=== PATIENT | female | born 1950 | race Two or more races ===

== ENCOUNTER 2018-06-15 10:18 | Emergency (ER) | payer OTHER ==
[2018-06-15 10:29] VITALS: BP 146/85; PULSE 96; TEMP 98.6; BMI 21.9
--- NOTE | 2018-06-15 10:59 | PDOC ---
History of Present Illness - General Chief Complaint: Injury Stated Complaint: RIGHT FINGER INJURY Time Seen by Provider: 06/15/18 10:44 History Source: Patient Exam Limitations: No Limitations - History of Present Illness Initial Comments: 06/15/18 10:57 pt fell and injured her right thumb yesterday . Occurred: reports: yesterday Severity: reports: mild Past History - Past Medical History Allergies/Adverse Reactions: Allergies Allergy/AdvReac Type Severity Reaction Status Date / Time No Known Drug Allergies Allergy Verified 06/15/18 10:27 Home Medications: Ambulatory Orders Amlodipine Besylate [Norvasc -] 10 mg PO DAILY 01/27/15 Losartan Potassium 100 mg PO DAILY 01/27/15 FA/Mv,Ca,Iron,Min/Lycopene/Lut [Centrum Tablet] 1 each PO DAILY 10/16/15 Lipase/Protease/Amylase [Creon Dr 36,000 Units Capsule] 1 each PO TID 10/16/15 Albuterol Sulfate Inhaler - [Ventolin Hfa Inhaler -] 1 - 2 inh PO QID 02/21/16 Linaclotide [Linzess] 145 mcg PO DAILY 02/21/16 Pantoprazole Sodium [Protonix -] 20 mg PO DAILY 02/21/16 Anemia: No Asthma: No Cancer: No Cardiac Disorders: No CVA: No COPD: No CHF: No Dementia: No Diabetes: No GI Disorders: Yes (GERD, CONSTIPATION) Disorders: No HTN: Yes Hypercholesterolemia: No Liver Disease: No Seizures: No Thyroid Disease: No - Surgical History Abdominal Surgery: No Appendectomy: No Cardiac Surgery: No Cholecystectomy: No Lung Surgery: No Neurologic Surgery: No Orthopedic Surgery: No - Immunization History Immunization Up to Date: Yes - Suicide/Smoking/Psychosocial Hx Smoking History: Former smoker Have you smoked in the past 12 months: No If you are a former smoker, when did you quit?: 20 years ago Information on smoking cessation initiated: No Hx Alcohol Use: No Drug/Substance Use Hx: No Substance Use Type: None Hx Substance Use Treatment: No Trauma Specific PMHX - Complaint Specific PMHX Back Injury: No Neck Injury: No Review of Systems - Review of Systems Able to Perform ROS?: Yes Is the patient limited Thai proficient: No Musculoskeletal: Yes: Symptoms Reported *Physical Exam - Vital Signs Last Vital Signs Temp Pulse Resp BP Pulse Ox 98.6 F 96 H 18 146/85 100 06/15/18 10:27 06/15/18 10:27 06/15/18 10:27 06/15/18 10:27 06/15/18 10:27 - Physical Exam General Appearance: Yes: Nourished, Appropriately Dressed HEENT: positive: EOMI, CLEMENT Musculoskeletal: positive: Normal Inspection Extremity: positive: Normal Capillary Refill, Normal Inspection, Normal Range of Motion, Tender (base of the right thumb ). negative: Swelling, Calf Tenderness, Erythema, Inflammation Integumentary: positive: Normal Color, Dry, Warm Procedures - Splinting Splint Location: Left: Finger (orthoglass) Splint Type: Yes: Thumb Spica ED Treatment Course - RADIOLOGY Radiology Studies Ordered: Category Date Time Status FINGER(S) RIGHT [RAD] Stat Radiology 06/15/18 10:44 Ordered Medical Decision Making - Medical Decision Making 06/15/18 10:58 cc: trip and fall injured the right thumb, no gross deformity nv intact will get xray to r/o fracture *DC/Admit/Observation/Transfer Diagnosis at time of Disposition: Thumb sprain Qualifiers: Encounter type: initial encounter Sprain of finger site: other site Laterality : right Qualified Code(s): S63.681A - Other sprain of right thumb, initial encounter - Discharge Dispostion Disposition: HOME Condition at time of disposition: Good - Referrals Referrals: Esther Reinoso MD [Primary Care Provider] - Jase Alfaro MD [Staff Physician] - - Patient Instructions Additional Instructions: follow with the hand orthopedist if the pain worsens or continues beyond 3-5 days take ibuprofen 600mg every 6-8hrs for pain (over the counter) apply ice every 2hrs for 20 minutes to the area of pain - Post Discharge Activity
[2018-06-15] MEDS ORDERED: IBUPROFEN 600 MG TABLET (FP) PO ONE (11:11)
== END 2018-06-15 11:18 | disposition home or self-care (01) ==
LOC: JERFT 10:18
PROC: 2W3GX1Z Immobilization of Right Thumb using Splint (ICD-10-PCS; principal; 2018-06-15)
DX: S63.681A Other sprain of right thumb, initial encounter (principal); I10 Essential (primary) hypertension; K21.9 Gastro-esophageal reflux disease without esophagitis; Z87.891 Personal history of nicotine dependence; W01.0XXA Fall on same level from slipping, tripping and stumbling without subsequent striking against object, initial encounter; Y93.9 Activity, unspecified; Y92.9 Unspecified place or not applicable
CPT/HCPCS: 73140-TC-RT-FY; 99281-25

== ENCOUNTER 2018-09-07 10:04 | Emergency (ER) | payer OTHER ==
[2018-09-07 10:46] VITALS: BP 148/85; PULSE 107; TEMP 98.3; BMI 21.9
--- NOTE | 2018-09-07 12:54 | PDOC ---
History of Present Illness - General Chief Complaint: Pain, Acute Stated Complaint: HAND PAIN Time Seen by Provider: 09/07/18 11:38 Past History - Past Medical History Allergies/Adverse Reactions: Allergies Allergy/AdvReac Type Severity Reaction Status Date / Time No Known Drug Allergies Allergy Verified 09/07/18 11:35 Home Medications: Ambulatory Orders Amlodipine Besylate [Norvasc -] 10 mg PO DAILY 01/27/15 Losartan Potassium 100 mg PO DAILY 01/27/15 FA/Mv,Ca,Iron,Min/Lycopene/Lut [Centrum Tablet] 1 each PO DAILY 10/16/15 Lipase/Protease/Amylase [Creon Dr 36,000 Units Capsule] 1 each PO TID 10/16/15 Albuterol Sulfate Inhaler - [Ventolin Hfa Inhaler -] 1 - 2 inh PO QID 02/21/16 Linaclotide [Linzess] 145 mcg PO DAILY 02/21/16 Pantoprazole Sodium [Protonix -] 20 mg PO DAILY 02/21/16 Acetaminophen [Tylenol] 650 mg PO Q4H #30 capsule 09/07/18 Methylprednisolone [Medrol Dose Juancarlos] 4 mg PO ASDIR #21 tablet 09/07/18 Anemia: No Asthma: No Cancer: No Cardiac Disorders: No CVA: No COPD: No CHF: No Dementia: No Diabetes: No GI Disorders: Yes (GERD, CONSTIPATION) Disorders: No HTN: Yes Hypercholesterolemia: No Liver Disease: No Seizures: No Thyroid Disease: No - Surgical History Abdominal Surgery: No Appendectomy: No Cardiac Surgery: No Cholecystectomy: No Lung Surgery: No Neurologic Surgery: No Orthopedic Surgery: No - Immunization History Immunization Up to Date: Yes - Suicide/Smoking/Psychosocial Hx Smoking History: Never smoked Have you smoked in the past 12 months: No If you are a former smoker, when did you quit?: 20 years ago Hx Alcohol Use: No Drug/Substance Use Hx: No Substance Use Type: None Hx Substance Use Treatment: No *Physical Exam - Vital Signs Last Vital Signs Temp Pulse Resp BP Pulse Ox 98.3 F 107 H 16 148/85 100 09/07/18 10:33 09/07/18 10:33 09/07/18 10:33 09/07/18 10:33 09/07/18 10:33 ED Treatment Course - RADIOLOGY Radiology Studies Ordered: Category Date Time Status WRIST W/HAND-RIGHT* [RAD] Stat Radiology 10/29/18 11:51 Taken *DC/Admit/Observation/Transfer Diagnosis at time of Disposition: Arthralgia of metacarpophalangeal joint Qualifiers: Laterality: right Qualified Code(s): M25.541 - Pain in joints of right hand - Discharge Dispostion Disposition: HOME Condition at time of disposition: Stable Decision to Admit order: No - Referrals Referrals: Jorge Fitzgerald MD [Staff Physician] - Jase Alfaro MD [Staff Physician] - - Patient Instructions Printed Discharge Instructions: DI for Arthritis Additional Instructions: You have arthritis to your right thumb. Please take the Tylenol as prescribed. Your also prescribed a Medrol Dosepak. Please follow the instructions on the package. It is important that she follow-up with orthopedics. 2 referrals have been provided for you. Return to the emergency department for worsening pain, fevers, or if you have any changes in your symptoms. - Post Discharge Activity
== END 2018-09-07 12:57 | disposition home or self-care (01) ==
LOC: JER 10:04 → JERFT 10:04
DX: M25.541 Pain in joints of right hand (principal); K21.9 Gastro-esophageal reflux disease without esophagitis
CPT/HCPCS: 73110-TC-RT-FY; 73130-TC-RT-FY; 99281-25

== ENCOUNTER 2018-11-16 13:11 | Emergency (ER) | payer OTHER ==
--- NOTE | 2018-11-16 13:20 | PDOC ---
Rapid Medical Evaluation Time Seen by Provider: 11/16/18 13:17 Medical Evaluation: Allergies Allergy/AdvReac Type Severity Reaction Status Date / Time No Known Drug Allergies Allergy Verified 09/07/18 11:35 11/16/18 13:17 I have performed a brief in-person evaluation of this patient. The patient presents with a chief complaint of eyes itching x 2 weeks. Patient reports itching watery eyes with foreign body sensation x 2 weeks. Reports drainage in the am Pertinent physical exam findings NAD HEENT: watery eyes, no ejection even and unlabored breathing I have ordered the following: none The patient will proceed to the Ed for further evaluation. Dx: itching eyes
[2018-11-16 13:23] VITALS: BP 152/91; PULSE 92; TEMP 98.2; BMI 21.9
--- NOTE | 2018-11-16 13:42 | PDOC ---
History of Present Illness - General Chief Complaint: Blurry Vision Stated Complaint: EYE PROBLEM Time Seen by Provider: 11/16/18 13:17 History Source: Patient Exam Limitations: Clinical Condition - History of Present Illness Initial Comments: 11/16/18 13:44 Patient with no significant past medical history present with complaint of one- week history of clear bilateral eye discharge, itching in bilateral eyes, swelling under bilateral eyes and nasal congestion. Patient denies blurry vision or pain to eye. Patient reported history of environmental ALLERGIES. Patient denies any other symptoms. Timing/Duration: 1 week Past History - Past Medical History Allergies/Adverse Reactions: Allergies Allergy/AdvReac Type Severity Reaction Status Date / Time No Known Drug Allergies Allergy Verified 09/07/18 11:35 Home Medications: Ambulatory Orders Amlodipine Besylate [Norvasc -] 10 mg PO DAILY 01/27/15 Losartan Potassium 100 mg PO DAILY 01/27/15 FA/Mv,Ca,Iron,Min/Lycopene/Lut [Centrum Tablet] 1 each PO DAILY 10/16/15 Albuterol Sulfate Inhaler - [Ventolin Hfa Inhaler -] 1 - 2 inh PO QID 02/21/16 Linaclotide [Linzess] 145 mcg PO DAILY 02/21/16 Fluoxetine HCl [Prozac] 20 mg PO ASDIR 11/16/18 Hydralazine HCl 50 mg PO ASDIR 11/16/18 Ipratropium [place] 2 spray NS BID PRN #1 spray 11/16/18 Ketotifen Fumarate [Zaditor] 2 drop OP BID PRN #1 bottle 11/16/18 Loratadine 10 mg PO DAILY #10 capsule 11/16/18 Montelukast Sodium [Singulair] 4 mg PO ASDIR 11/16/18 Anemia: No Asthma: No Cancer: No Cardiac Disorders: No CVA: No COPD: No CHF: No Dementia: No Diabetes: No GI Disorders: Yes (GERD, CONSTIPATION) Disorders: No HTN: Yes Hypercholesterolemia: No Liver Disease: No Seizures: No Thyroid Disease: No - Surgical History Abdominal Surgery: No Appendectomy: No Cardiac Surgery: No Cholecystectomy: No Lung Surgery: No Neurologic Surgery: No Orthopedic Surgery: No - Immunization History Immunization Up to Date: Yes - Suicide/Smoking/Psychosocial Hx Smoking History: Current some day smoker Have you smoked in the past 12 months: No Number of Cigarettes Smoked Daily: 1 If you are a former smoker, when did you quit?: 20 years ago Information on smoking cessation initiated: No Hx Alcohol Use: No Drug/Substance Use Hx: No Substance Use Type: None Hx Substance Use Treatment: No Review of Systems - Review of Systems Able to Perform ROS?: Yes Is the patient limited Cymraes proficient: No Constitutional: No: Symptoms Reported HEENTM: Yes: Symptoms Reported, See HPI, Tearing (b/l ears), Nose Congestion. No: Eye Pain, Blurred Vision, Recent change in vision, Double Vision, Cataracts , Ear Pain, Ocular Prothesis, Ear Discharge, Nose Pain, Tinnitus, Nose Bleeding , Hearing Loss, Throat Pain, Throat Swelling, Mouth Pain, Dental Problems, Difficulty Swallowing, Mouth Swelling, Other Respiratory: No: Symptoms reported, See HPI, Cough, Orthopnea, Shortness of Breath, SOB with Exertion, SOB at Rest, Stridor, Wheezing, Productive cough, Hemoptysis, Other Cardiac (ROS): No: Symptoms Reported, See HPI, Chest Pain, Edema, Irregular Heart Rate, Lightheadedness, Palpitations, Syncope, Chest Tightness, Other ABD/GI: No: Nausea, Vomiting All Other Systems: Reviewed and Negative *Physical Exam - Vital Signs Last Vital Signs Temp Pulse Resp BP Pulse Ox 98.2 F 92 H 20 152/91 99 11/16/18 13:18 11/16/18 13:18 11/16/18 13:18 11/16/18 13:18 11/16/18 13:18 - Physical Exam Comments: 11/16/18 13:46 GENERAL: Well developed, well nourished. Awake and alert. No acute distress. HEENT: moderate clear discharge from right eye with excessive tearing in right eye with mild tearing in left eye. Normocephalic, atraumatic. PERRLA, EOMI. No conjunctival pallor. Sclera are non-icteric. Moist mucous membranes. Oropharynx is clear. NECK: Supple. Full ROM. CARDIOVASCULAR: Regular rate and rhythm. No murmurs, rubs, or gallops. Distal pulses are 2+ and symmetric. PULMONARY: No evidence of respiratory distress. Lungs clear to auscultation bilaterally. No wheezing, rales or rhonchi. ABDOMINAL: Soft. Non-tender. Non-distended. No rebound or guarding. No organomegaly. Normoactive bowel sounds. MUSCULOSKELETAL Normal range of motion at all joints. EXTREMITIES: No cyanosis. No clubbing. No edema.. SKIN: Warm and dry. Normal capillary refill. No rashes. No jaundice. NEUROLOGICAL: Alert, awake, appropriate. Gait is normal without ataxia. PSYCHIATRIC: Cooperative. Good eye contact. Appropriate mood General Appearance: Yes: Nourished, Appropriately Dressed. No: Apparent Distress Moderate Sedation - Procedure Monitoring Vital Signs: Procedure Monitoring Vital Signs Temperature 98.2 F 11/16/18 13:18 Pulse Rate 92 H 11/16/18 13:18 Respiratory Rate 20 11/16/18 13:18 Blood Pressure 152/91 11/16/18 13:18 O2 Sat by Pulse Oximetry (%) 99 11/16/18 13:18 Medical Decision Making - Medical Decision Making 11/16/18 13:48 Patient with no significant past medical history present with complaint of one- week history of clear bilateral eye discharge, itching in bilateral eyes, swelling under bilateral eyes and nasal congestion Exam significant for moderate tearing in right eye with mild tearing in left eye. Conjunctiva clear with no conjunctival erythema. Moderate and nasal congestion on exam otherwise unremarkable exam. Patient's symptoms likely ALLERGIC rhinitis with ALLERGIC conjunctivitis. Patient is stable for outpatient treatment with eyedrops for ALLERGIES and nasal spray with antihistamine with ophthalmology follow-up as needed. *DC/Admit/Observation/Transfer Diagnosis at time of Disposition: Nasal congestion Allergic conjunctivitis and rhinitis Qualifiers: Laterality: bilateral Qualified Code(s): H10.13 - Acute atopic conjunctivitis, bilateral - Discharge Dispostion Disposition: HOME Condition at time of disposition: Stable Decision to Admit order: No - Prescriptions Prescriptions: Ipratropium [place] 2 spray NS BID PRN #1 spray PRN Reason: nasal congestion Ketotifen Fumarate [Zaditor] 2 drop OP BID PRN #1 bottle PRN Reason: itchy eyes Loratadine 10 mg PO DAILY #10 capsule - Referrals Referrals: Yogesh London MD [Staff Physician] - - Patient Instructions Printed Discharge Instructions: Allergic Rhinitis Additional Instructions: Use medications as prescribed. Follow-up referred to ophthalmology if symptoms persist for more than 4 days. - Post Discharge Activity
== END 2018-11-16 13:51 | disposition home or self-care (01) ==
LOC: JERFT 13:11
DX: R09.81 Nasal congestion (principal); H10.13 Acute atopic conjunctivitis, bilateral; F17.210 Nicotine dependence, cigarettes, uncomplicated; I10 Essential (primary) hypertension; K21.9 Gastro-esophageal reflux disease without esophagitis; K59.00 Constipation, unspecified
CPT/HCPCS: 99281-25

== ENCOUNTER 2018-12-01 05:27 | Day surgery (SDC) | payer OTHER ==
[2018-12-01 09:24] VITALS: BMI 21.9
--- NOTE | 2018-12-01 12:25 | HP ---
Satellite [facility] - Chief Complaint Chief Complaint: right thumb pain/instability - Past Medical History Allergies/Adverse Reactions: Allergies Allergy/AdvReac Type Severity Reaction Status Date / Time No Known Drug Allergies Allergy Verified 12/01/18 09:24 - Current Medications Current Medications: Home Medications Medication Instructions Recorded Amlodipine Besylate [Norvasc -] 10 mg PO DAILY 01/27/15 Losartan Potassium 100 mg PO DAILY 01/27/15 FA/Mv,Ca,Iron,Min/Lycopene/Lut 1 each PO DAILY 10/16/15 [Centrum Tablet] Albuterol Sulfate Inhaler - 1 - 2 inh PO QID 02/21/16 [Ventolin HFA Inhaler -] Linaclotide [Linzess] 145 mcg PO ASDIR 02/21/16 Fluoxetine HCl [Prozac] 20 mg PO DAILY 11/16/18 Hydralazine HCl 50 mg PO DAILY 11/16/18 Ipratropium [place] 2 spray NS BID PRN #1 spray 11/16/18 Ketotifen Fumarate [Zaditor] 2 drop OP BID PRN #1 bottle 11/16/18 Loratadine 10 mg PO DAILY #10 capsule 11/16/18 Montelukast Sodium [Singulair] 10 mg PO DAILY 11/16/18 Oxycodone HCl/Acetaminophen 1 tab PO Q6H #20 tablet MDD 4 12/01/18 [Percocet 5-325 mg Tablet] Satellite Physical Exam - Physical Examination General Appearance: Well Nourished, Well Developed, Alert & Oriented x3 ENT: Clear Lung: Normal air movement Heart: Regular rate & rhythm Extremities: Other (right thumb- + ttp, + laxity, nvi MRI + chronic UCL tear) Neurological: Intact, Alert, Oriented Satellite Impression/Plan - Impression/Plan Impression: right thumb UCL tear Operative Procedure: right thumb UCL repair Date to be Performed: 12/01/18
[2018-12-01] MEDS ORDERED: BUPIVACAINE HCL/PF 0.5% (5MG/ML) 10 ML VIAL ONE (13:37)
[2018-12-01] MEDS ORDERED: MIDAZOLAM HCL 2 MG/2 ML SINGLE DOSE VIAL ONE (14:06)
[2018-12-01] MEDS ORDERED: ceFAZolin SODIUM 1 GM VIAL IVPB ONE (14:10)
[2018-12-01] MEDS ORDERED: PROPOFOL 20 ML ONE (14:11)
[2018-12-01] MEDS ORDERED: DEXAMETHASONE SOD PHOSPHATE 4 MG/1 ML VIAL ONE (14:16)
[2018-12-01] MEDS ORDERED: ceFAZolin SODIUM 1 GM VIAL ONE (14:16)
[2018-12-01] MEDS ORDERED: LIDOCAINE HCL 1%, 10 MG/ML (20ML VIAL) NR ONE (15:02)
[2018-12-01] MEDS ORDERED: BUPIVACAINE HCL/PF (5 MG/ML) 30 ML VIAL IJ ONE (15:03)
--- NOTE | 2018-12-01 15:17 | OP ---
Operative Note - Note: Operative Date: 12/01/18 ([facility]) Pre-Operative Diagnosis: right thumb UCL tear Operation: right thumb UCL repair Implants: 2 mini mitek suture anchors Post-Operative Diagnosis: Same as Pre-op Surgeon: Jorge Fitzgerald Medicine Tech: Nikita Aguilar Anesthesiologist/OWNER PROFESSIONAL ENGINEER: Shasta Chambers MD Anesthesia: General, Local Estimated Blood Loss (mls): 0 (tourniquet) Operative Report Dictated: Yes
[2018-12-01] MEDS ORDERED: ONDANSETRON 4 MG/2 ML VIAL IVPUSH PRN (15:24)
[2018-12-01] MEDS ORDERED: LACTATED RINGERS SOLUTION 1,000 ML IV SCH (15:30)
--- NOTE | 2018-12-01 16:07 | OP ---
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 PROCEDURE: Right thumb ulnar collateral ligament repair. SURGEON: Carolina Alvarez MD LATH TIER: ROSARIO Rankin ANESTHESIOLOGIST: Shasta Chambers MD ANESTHESIA: LMA anesthesia with local injection of 7 mL 0.5% Marcaine and 1% lidocaine mix. DRAINS: None. COMPLICATIONS: None. SPECIMEN: None. FLUID REPLACEMENT: Plasma-Lyte 700 mL. BLOOD LOSS: None. BLOOD GIVEN: None. This patient is a 67-year-old female with a preoperative diagnosis of chronic right thumb ulnar collateral ligament tear. After understanding the potential risks, complications, alternatives, and benefits of surgery versus nonsurgical treatment, the patient elected to undergo this procedure. Patient was brought to the operating room. Peripheral IV placed. IV sedation given. One gram of IV Ancef was given. LMA anesthesia was induced. The right upper extremity was prepped and draped in sterile fashion. A curvilinear incision was marked out over the ulnar collateral ligament of the right thumb and the area injected with 7 mL 0.5% Marcaine and 1% lidocaine mix. The right upper extremity was then elevated, exsanguinated with an Esmarch bandage, and tourniquet inflated to 250 mmHg. The entire case was done under 3.8 loupe magnification. An incision was made with a number-15 scalpel blade. Subcutaneous hemostasis achieved with the bipolar cautery. Dissection done with Littler scissors. Weitlaner retractor was placed into the wound. Immediately, it was apparent there was a very hypertrophic, thickened, capsule. It was dissected in layers for later repair. I then got down to the chronic tear of the ulnar collateral ligament. It was still attached to the submetacarpal. It was off the proximal phalanx. I then used a number-15 scalpel blade to do periosteal dissection on the proximal ulnar aspect of the proximal phalanx. This would be our landing bed for the 2 mini Mitek suture Quickanchors. Next, I mobilized what was left of the ulnar collateral ligament. It was able to come over to the thumb proximal phalanx quite nicely. I mobilized the layers. Next, I drilled with a 0.062 K-wire into the proximal ulnar aspect of the proximal phalanx of the right thumb, then put in a mini Mitek Quickanchor, and I used the preloaded Ethibond sutures to suture through the main stump of the ulnar collateral ligament and bring it back down onto the proximal phalanx. It came together quite nicely. Before I tied it down, I put in a 0.062 K-wire across the metacarpophalangeal joint in slight flexion and abduction to take pressure off the repair. I then tied down the suture anchors of the ulnar collateral ligament repair. They were not under too much tension. Next, I put in a second mini Mitek Quickanchor into the slightly more dorsal aspect of the right thumb proximal phalanx and was able to grab the remaining slightly more dorsal and proximal aspects of the ulnar collateral ligament complex. This also came down quite nicely, crossing the joint for excellent stability. Next, I used the tails that were left over of the Ethibond suture from the mini Mitek Quickanchor and did multiple supplemental sutures in the ulnar collateral ligament proper in the first capsular layer and in the second fascial layer. It all came over the ulnar aspect of the thumb MP joint quite nicely, and there was actually a lot of good tissue utilizing in the repair. The fascia of the musculature was then repaired over the repair, 4-0 undyed Vicryl used to close the deep dermal layer. Final skin reapproximation was done with a running subcuticular 4-0 Biosyn stitch. The area was then washed and dried, covered with Steri-Strips. The 0.062 K-wire was bent, cut, and a pin cap applied. Xeroform was applied to its base. I put sterile 4-x-4 gauze throughout, fluffs between the fingers, Webril, and a 4-inch Ortho-Glass thumb spica splint was made and wrapped with Lety and Coban. The tourniquet was taken down after total tourniquet time of 41 minutes. There were no complications during the case. The patient tolerated the procedure quite well and was brought to the ambulatory recovery room in stable condition. CAROLINA ALVAREZ M.D. [id number]
[2018-12-01 17:18] VITALS: TEMP 98.3
[2018-12-01 19:43] VITALS: BP 138/82; PULSE 104
== END 2018-12-01 18:15 | disposition home or self-care (01) ==
LOC: JASU-SURG 05:27
PROVIDERS: ATTEND Orthopaedic Surgery
PROC: 0MQ70ZZ Repair Right Hand Bursa and Ligament, Open Approach (ICD-10-PCS; principal; 2018-12-01 14:30)
DX: S63.681A Other sprain of right thumb, initial encounter (principal); X58.XXXA Exposure to other specified factors, initial encounter; Y93.9 Activity, unspecified; Y92.9 Unspecified place or not applicable; Y99.9 Unspecified external cause status
CPT/HCPCS: 94760

== ENCOUNTER → 2019-02-15 | Day surgery (SDC) | payer OTHER ==
--- NOTE | 2019-02-17 15:58 | PATH ---
Cytology Non-Gynecological Report Patient Name: JERRICA LEO [facility]. Rec. #: [id number] /Age/Gender: 1950 (Age: 68) / F Account: [id number] Location: RADIOLOGY INTER Taken: 02/15/2019 Received: 02/15/2019 Reported: 02/17/2019 Physicians: Ana Siu M.D. Specimen(s) Received RIGHT THYROID FNA Clinical History Right thyroid nodule Final Diagnosis RIGHT THYROID, FINE NEEDLE ASPIRATION: UNSATISFACTORY FOR EVALUATION. BETHESDA CLASS I: NON-DIAGNOSTIC RARE FOLLICULAR CELLS PRESENT. Electronically Signed Analisa Harris M.D. Gross Description Received are eight direct smears, four of which are air-dried and Diff-Quik stained, and four of which are alcohol fixed and Pap stained. Also received is 20 ml of bloody formalin from which one cellblock is prepared.
== END | disposition home or self-care (01) ==
LOC: JRADIR 09:26
PROVIDERS: ATTEND Internal Medicine
PROC: 0G9K3ZX Drainage of Thyroid Gland, Percutaneous Approach, Diagnostic (ICD-10-PCS; principal; 2019-02-15)
DX: E04.1 Nontoxic single thyroid nodule (principal)
CPT/HCPCS: 10005; 76942; 88173; 88305-TC

== ENCOUNTER → 2019-05-11 | Day surgery (SDC) | payer OTHER ==
--- NOTE | 2019-05-12 17:46 | PATH ---
Cytology Non-Gynecological Report Patient Name: JERRICA LEO [facility]. Rec. #: [id number] /Age/Gender: 1950 (Age: 68) / F Account: [id number] Location: RADIOLOGY INTER Taken: 05/11/2019 Received: 05/11/2019 Reported: 05/12/2019 Physicians: Cynthia Barber M.D. Specimen(s) Received RIGHT THYROID FNA Clinical History Right thyroid nodule, 2.44 x 0.89 x 2.09 cm Final Diagnosis THYROID, RIGHT, FINE NEEDLE ASPIRATION: SATISFACTORY FOR EVALUATION. BETHESDA CLASS II: BENIGN. CYTOLOGIC FINDINGS ARE CONSISTENT WITH A BENIGN FOLLICULAR NODULE. SMALL FOLLICULAR CELLS AND COLLOID PRESENT. Electronically Signed Rosario White M.D. Gross Description Received are eight direct smears, four of which are air-dried and Diff-Quik stained, and four of which are alcohol fixed and Pap stained. Also received is 20 ml of bloody formalin from which one cellblock is prepared.
== END | disposition home or self-care (01) ==
LOC: JRADIR 09:21
PROVIDERS: ATTEND Internal Medicine
PROC: 0G9K3ZX Drainage of Thyroid Gland, Percutaneous Approach, Diagnostic (ICD-10-PCS; principal; 2019-05-11)
DX: E04.1 Nontoxic single thyroid nodule (principal)
CPT/HCPCS: 76942; 88173; 88305-TC

== ENCOUNTER 2019-12-24 13:08 | Emergency (ER) | payer OTHER ==
[2019-12-24 13:19] VITALS: PULSE 95; TEMP 97.4; BMI 21.9
[2019-12-24 14:10] VITALS: BP 145/85
--- NOTE | 2019-12-24 14:19 | PDOC ---
History of Present Illness - General Chief Complaint: Cold Symptoms Stated Complaint: FLU LIKE SYMPTOMS, SHORTNESS OF BREATH Time Seen by Provider: 12/24/19 13:26 History Source: Patient - History of Present Illness Initial Comments: 12/24/19 15:03 69-year-old female with history of asthma complaining of chest congestion for 1 week. Patient reports chills denies fever. Patient reports that she lives with children who smokes around her. Denies shortness of breath Past History - Past Medical History Allergies/Adverse Reactions: Allergies Allergy/AdvReac Type Severity Reaction Status Date / Time No Known Drug Allergies Allergy Verified 12/01/18 13:18 Home Medications: Ambulatory Orders Amlodipine Besylate [Norvasc -] 10 mg PO DAILY 01/27/15 Losartan Potassium 100 mg PO DAILY 01/27/15 FA/Mv,Ca,Iron,Min/Lycopene/Lut [Centrum Tablet] 1 each PO DAILY 10/16/15 Albuterol Sulfate Inhaler - [Ventolin HFA Inhaler -] 1 - 2 inh PO QID 02/21/16 Linaclotide [Linzess] 145 mcg PO ASDIR 02/21/16 Fluoxetine HCl [Prozac] 20 mg PO DAILY 11/16/18 Hydralazine HCl 50 mg PO DAILY 11/16/18 Loratadine 10 mg PO DAILY #10 capsule 11/16/18 Montelukast Sodium [Singulair] 10 mg PO DAILY 11/16/18 Oxycodone HCl/Acetaminophen [Percocet 5-325 mg Tablet] 1 tab PO Q6H #20 tablet MDD 4 12/01/18 Albuterol 0.083% Nebulizer Guillermina [Ventolin 0.083% Nebulizer Soln -] 1 neb NEB Q6H PRN #30 vial 12/24/19 Nebulizer [Aeroeclipse II] 1 each MC QID PRN #1 each 12/24/19 Prednisone [Prednisone 50 MG TABLETS] 50 mg PO DAILY #4 tablet 12/24/19 Anemia: No Asthma: No Cancer: No Cardiac Disorders: No CVA: No COPD: No CHF: No Dementia: No Diabetes: No GI Disorders: Yes (GERD, CONSTIPATION) Disorders: No HTN: Yes Hypercholesterolemia: No Liver Disease: No Seizures: No Thyroid Disease: No - Surgical History Abdominal Surgery: No Appendectomy: No Cardiac Surgery: No Cholecystectomy: No Lung Surgery: No Neurologic Surgery: No Orthopedic Surgery: No - Immunization History Immunization Up to Date: Yes - Psycho Social/Smoking Cessation Hx Smoking History: Never smoked Have you smoked in the past 12 months: Yes Number of Cigarettes Smoked Daily: 1 If you are a former smoker, when did you quit?: 2009 Information on smoking cessation initiated: No Hx Alcohol Use: No Drug/Substance Use Hx: No Substance Use Type: None Hx Substance Use Treatment: No *Physical Exam - Vital Signs Last Vital Signs Temp Pulse Resp BP Pulse Ox 97.4 F L 95 H 18 145/85 100 12/24/19 13:14 12/24/19 13:14 12/24/19 13:14 12/24/19 14:09 12/24/19 13:14 - Physical Exam General Appearance: Yes: Appropriately Dressed HEENT: positive: Pharynx Normal, Nasal Congestion Respiratory/Chest: positive: Lungs Clear, Normal Breath Sounds. negative: Accessory Muscle Use Cardiovascular: positive: Regular Rhythm, Regular Rate Gastrointestinal/Abdominal: positive: Normal Bowel Sounds, Soft. negative: Tender Integumentary: positive: Normal Color, Dry, Warm Neurologic: positive: Fully Oriented, Alert Heart Score/ECG Review - ECG Intrepretation Rhythm: Regular Rhythm Comment:: 12/24/19 15:08 NSR: 94 bpm prolonged Qt 402/ 502s ED Progress Note - Progress Note Progress Note: 12/24/19 16:26 A: Asthma ; VIRAL syndrome P: chest xray: negative EKG: NSR prolonged qt: patient is advised to follow up with PCP Discharge - Discharge Information Problems reviewed: Yes Clinical Impression/Diagnosis: Viral syndrome Asthma Qualifiers: Asthma severity: mild Asthma persistence: persistent Asthma complication type: unspecified Qualified Code(s): J45.30 - Mild persistent asthma, uncomplicated Condition: Improved Disposition: HOME - Additional Discharge Information Prescriptions: Albuterol 0.083% Nebulizer Guillermina [Ventolin 0.083% Nebulizer Soln -] 1 neb NEB Q6H PRN #30 vial PRN Reason: Cough Nebulizer [Aeroeclipse II] 1 each MC QID PRN #1 each PRN Reason: Cough Prednisone [Prednisone 50 MG TABLETS] 50 mg PO DAILY #4 tablet - Follow up/Referral Referrals: Ana Siu MD [Primary Care Provider] - - Patient Discharge Instructions Patient Printed Discharge Instructions: Asthma -- Adult Additional Instructions: Use albuterol every 4 hours as needed for wheezing and cough. Take prednisone as prescribed Follow-up with your doctor as soon as possible Return to the emergency room for any worsening symptom - Post Discharge Activity Work/Back to School Note: Back to Work
[2019-12-24] MEDS ORDERED: ALBUTEROL SO4 0.083% IH SOL 2.5 MG/3 ML VIAL.NEB. NEB ONE ×2 (14:35→14:41)
--- NOTE | 2019-12-25 17:14 | EKG ---
Test Reason : Blood Pressure : / mmHG Vent. Rate : 094 BPM Atrial Rate : 094 BPM P-R Int : 170 ms QRS Dur : 084 ms QT Int : 402 ms P-R-T Axes : 055 055 059 degrees QTc Int : 502 ms NORMAL SINUS RHYTHM POSSIBLE LEFT ATRIAL ENLARGEMENT PROLONGED QT ABNORMAL ECG WHEN COMPARED WITH ECG OF 26-NOV-2018 15:22, NO SIGNIFICANT CHANGE WAS FOUND BASELINE ARTIFACT Confirmed by ABE TYSON, LAILA ([id number]) on 12/25/2019 5:14:39 PM Referred By: Confirmed By:LAILA FISH MD
== END 2019-12-24 15:16 | disposition home or self-care (01) ==
LOC: JERFT 13:08
PROC: 3E0F7GC Introduction of Other Therapeutic Substance into Respiratory Tract, Via Natural or Artificial Opening (ICD-10-PCS; principal; 2019-12-24)
DX: B34.9 Viral infection, unspecified (principal); I10 Essential (primary) hypertension
CPT/HCPCS: 71046-TC-FY; 93005; 93010; 99284-25

== ENCOUNTER 2021-06-23 15:34 | Emergency (ER) | payer OTHER ==
[2021-06-23 15:49] VITALS: BP 140/92; PULSE 91; TEMP 98.6; BMI 21.9
[2021-06-23] MEDS ORDERED: KETOROLAC TROMETHAMINE 30 MG/1 ML VIAL IM ONE (16:12)
[2021-06-23] MEDS ORDERED: KETOROLAC TROMETHAMINE 30 MG/1 ML VIAL ONE (16:13)
== END 2021-06-23 16:37 | disposition home or self-care (01) ==
LOC: JERFT 15:34
PROC: 3E0233Z Introduction of Anti-inflammatory into Muscle, Percutaneous Approach (ICD-10-PCS; principal; 2021-06-23)
DX: S43.401A Unspecified sprain of right shoulder joint, initial encounter (principal); X50.0XXA Overexertion from strenuous movement or load, initial encounter
CPT/HCPCS: 96372; 99284-25

== ENCOUNTER 2021-11-11 12:15 | Emergency (ER) | payer OTHER ==
[2021-11-11 12:31] VITALS: BP 124/79; PULSE 94; TEMP 98; BMI 21.9
[2021-11-11] MEDS ORDERED: ONDANSETRON 4 MG/2 ML VIAL IVPUSH ONE (14:04)
[2021-11-11] MEDS ORDERED: SODIUM CHLORIDE 1,000 ML IV STA (14:04)
[2021-11-11] MEDS ORDERED: ACETAMINOPHEN 1000 MG/100 ML BAG IVPB ONE (14:04)
[2021-11-11 14:55] LABS: BASO % 0.7 % (0-2.0); HEMATOCRIT 40.9 % (32.4-45.2); HEMOGLOBIN 13.1 GM/dL (10.7-15.3); MCH 29.1 pg (25.7-33.7); MCHC 32.1 g/dl (32.0-36.0); MEAN CELL VOLUME 90.6 fl (80-96); MEAN PLT VOLUME 7.8 fl (7.5-11.1); MONO % 7.8 % (3.8-10.2); NEUT % 48.5 % (42.8-82.8); PLATELET COUNT 276 10^3/uL (134-434); RBC 4.51 M/mm3 (3.60-5.2)
[2021-11-11] MEDS ORDERED: ONDANSETRON 4 MG/2 ML VIAL ONE (14:55)
[2021-11-11 15:01] LABS: INR 0.96 (0.83-1.09); PROTHROMBIN TIME (PATIENT) 10.7 SEC (9.7-13.0)
[2021-11-11 15:07] LABS: EPI CELLS 7 /uL (0-25.1); HYALINE CASTS 0 /uL (0-3.1); URINE APPEARANCE CLEAR; URINE BACTERIA 95 /uL (0-1359); URINE BILIRUBIN NEGATIVE (NEGATIVE); URINE COLOR YELLOW; URINE GLUCOSE (UA) NEGATIVE (NEGATIVE); URINE KETONE NEGATIVE (NEGATIVE); URINE LEUK ESTERASE TRACE (NEGATIVE); URINE NITRITE NEGATIVE (NEGATIVE); URINE PROTEIN NEGATIVE (NEGATIVE); URINE RBC 7 /uL (0-23.9); URINE UROBILINOGEN 0.2 mg/dL (0.2-1.0); URINE WBC 5 /uL (0-25.8)
[2021-11-11 15:26] LABS: ALBUMIN 4.2 g/dl (3.4-5.0); BLOOD UREA NITROGEN 11.4 mg/dL (7-18); CALCIUM 9.5 mg/dL (8.5-10.1)
[2021-11-11 15:29] LABS: CREATININE 0.9 mg/dL (0.55-1.3)
[2021-11-11 15:30] LABS: BILIRUBIN,TOTAL 0.3 mg/dL (0.2-1)
[2021-11-11 15:31] LABS: TOT PROT 7.8 g/dl (6.4-8.2)
[2021-11-11] MEDS ORDERED: ACETAMINOPHEN INJECTION 100 ML IVPB ONE (15:31)
[2021-11-11] MEDS ORDERED: MAGNESIUM HYDROX 2400MG/30ML ORAL SUSPENSION 30 ML CUP PO ONE (17:42)
[2021-11-11] MEDS ORDERED: MAG HYDROX/AL HYDROX/SIMETH 30 ML UNIT-DOSE CUP ONE (17:46)
== END 2021-11-11 17:57 | disposition home or self-care (01) ==
LOC: JER 12:15
PROC: 3E033GC Introduction of Other Therapeutic Substance into Peripheral Vein, Percutaneous Approach (ICD-10-PCS; principal; 2021-11-11)
DX: R10.84 Generalized abdominal pain (principal); K59.00 Constipation, unspecified
CPT/HCPCS: 36415; 76705-TC; 80053; 81003; 83690; 85025; 85610; 87086; 96361; 96374; 96375; 99284-25; C9803; J0131; U0003; U0005

== ENCOUNTER 2021-11-12 05:51 | Day surgery (SDC) | payer OTHER ==
[2021-10-30 10:09] VITALS: BMI 21.9
[2021-11-12] MEDS ORDERED: EPINEPHrine/PF 1 MG/1 ML (1:1,000) AMPULE ONE (07:18)
[2021-11-12] MEDS ORDERED: ROPIVACAINE HCL/PF 100 MG/20 ML VIAL ONE (07:27)
[2021-11-12] MEDS ORDERED: MIDAZOLAM HCL 2 MG/2 ML SINGLE DOSE VIAL ONE (07:27)
[2021-11-12] MEDS ORDERED: PROPOFOL 20 ML ONE ×4 (07:38)
[2021-11-12] MEDS ORDERED: SUCCINYLCHOLINE CHLORIDE 200 MG/10 ML SYRINGE ONE (07:39)
[2021-11-12] MEDS ORDERED: BUPIVACAINE HCL/EPINEPHRINE/PF 30 ML VIAL IJ ONE (07:46)
[2021-11-12] MEDS ORDERED: KETOROLAC TROMETHAMINE 30 MG/1 ML VIAL ONE (07:49)
[2021-11-12] MEDS ORDERED: ceFAZolin SODIUM 1 GM VIAL ONE (07:49)
[2021-11-12] MEDS ORDERED: DEXAMETHASONE SOD PHOSPHATE 4 MG/1 ML VIAL ONE (07:49)
[2021-11-12] MEDS ORDERED: ONDANSETRON 4 MG/2 ML VIAL ONE (07:49)
[2021-11-12] MEDS ORDERED: ACETAMINOPHEN 1000 MG/100 ML BAG IVPB PRN (09:28)
[2021-11-12] MEDS ORDERED: oxyCODONE HCL 5 MG TABLET PO PRN ×2 (09:28)
[2021-11-12] MEDS ORDERED: PROMETHAZINE HCL 25 MG/1 ML VIAL IVPUSH PRN (09:28)
[2021-11-12] MEDS ORDERED: ONDANSETRON 4 MG/2 ML VIAL IVPUSH PRN (09:28)
[2021-11-12 13:24] VITALS: TEMP 97.8
[2021-11-12 13:38] VITALS: PULSE 87
[2021-11-12 13:44] VITALS: BP 136/75
== END 2021-11-12 11:50 | disposition home or self-care (01) ==
LOC: FASU 05:51
PROVIDERS: ATTEND Orthopaedic Surgery
PROC: 0LS30ZZ Reposition Right Upper Arm Tendon, Open Approach (ICD-10-PCS; 2021-11-12)
PROC: 0PB94ZZ Excision of Right Clavicle, Percutaneous Endoscopic Approach (ICD-10-PCS; principal; 2021-11-12 08:14)
PROC: 0RNJ4ZZ Release Right Shoulder Joint, Percutaneous Endoscopic Approach (ICD-10-PCS; 2021-11-12 08:14)
DX: M75.111 Incomplete rotator cuff tear or rupture of right shoulder, not specified as traumatic (principal); M75.21 Bicipital tendinitis, right shoulder; S43.431A Superior glenoid labrum lesion of right shoulder, initial encounter; X58.XXXA Exposure to other specified factors, initial encounter; Y93.9 Activity, unspecified; Y92.9 Unspecified place or not applicable; M65.811 Other synovitis and tenosynovitis, right shoulder; M75.01 Adhesive capsulitis of right shoulder; M19.011 Primary osteoarthritis, right shoulder
CPT/HCPCS: 88304-TC; 94760

== ENCOUNTER 2023-01-16 09:09 | Observation (INO) | payer OTHER ==
[2023-01-16 09:21] VITALS: BMI 21.6
[2023-01-16 10:10] LABS: BASO % 0.2 % (0-2.0); EOS % 0.1 % (0-4.5); HEMATOCRIT 36.2 % (32.4-45.2); HEMOGLOBIN 12.3 GM/dL (10.7-15.3); LYMPH % 13.1 % (8-40); MCH 30.6 pg (25.7-33.7); MCHC 34.1 g/dl (32.0-36.0); MEAN CELL VOLUME 89.8 fl (80-96); MEAN PLT VOLUME 7.4 fl (7.5-11.1); MONO % 5.4 % (3.8-10.2); NEUT % 81.2 % (42.8-82.8); PLATELET COUNT 214 10^3/uL (134-434); RBC 4.03 M/mm3 (3.60-5.2); RDW 14.7 % (11.6-15.6); WHITE BLOOD COUNT 7.1 K/mm3 (4.0-10.0)
[2023-01-16 10:14] LABS: INR 0.99 (0.83-1.09); PROTHROMBIN TIME (PATIENT) 11.5 SEC (9.7-13.0)
[2023-01-16 10:17] LABS: ACTIVATED PTT 35.8 SECONDS (25.2-36.5)
[2023-01-16 10:32] LABS: BLOOD UREA NITROGEN 22.2 mg/dL (7-18); CALCIUM 9.7 mg/dL (8.5-10.1)
[2023-01-16 10:33] LABS: ALBUMIN 4.5 g/dl (3.4-5.0); MAGNESIUM 2.5 mg/dL (1.8-2.4)
[2023-01-16 10:38] LABS: BILIRUBIN,TOTAL 0.4 mg/dL (0.2-1); CREATININE 1.2 mg/dL (0.55-1.3); TOT PROT 8.4 g/dl (6.4-8.2)
[2023-01-16] MEDS: ENOXAPARIN NA (PORCINE) 40 MG/0.4 ML DISP.SYRIN SQ SCH (16:39)
[2023-01-16] MEDS: LOSARTAN POTASSIUM 50 MG TABLET PO SCH (16:39)
[2023-01-16 18:47] LABS: MAGNESIUM 2.3 mg/dL (1.8-2.4)
[2023-01-17] MEDS: LOSARTAN POTASSIUM 50 MG TABLET PO SCH ×2 (08:42→11:27)
[2023-01-17 08:43] LABS: CALCIUM 9.3 mg/dL (8.5-10.1)
[2023-01-17 08:45] LABS: ALBUMIN 3.8 g/dl (3.4-5.0)
[2023-01-17 08:46] LABS: BLOOD UREA NITROGEN 18.4 mg/dL (7-18)
[2023-01-17 08:47] LABS: TOT PROT 7.3 g/dl (6.4-8.2)
[2023-01-17 08:49] LABS: PHOSPHOROUS 2.7 mg/dL (2.5-4.9)
[2023-01-17 08:51] LABS: BILIRUBIN,TOTAL 0.3 mg/dL (0.2-1)
[2023-01-17 09:03] LABS: BASO % 0.7 % (0-2.0); EOS % 0.3 % (0-4.5); HEMATOCRIT 37.5 % (32.4-45.2); HEMOGLOBIN 12.5 GM/dL (10.7-15.3); LYMPH % 50.4 % (8-40); MCHC 33.3 g/dl (32.0-36.0); MEAN CELL VOLUME 90.1 fl (80-96); MEAN PLT VOLUME 7.8 fl (7.5-11.1); MONO % 12.9 % (3.8-10.2); NEUT % 35.7 % (42.8-82.8); PLATELET COUNT 204 10^3/uL (134-434); RBC 4.16 M/mm3 (3.60-5.2); RDW 14.7 % (11.6-15.6)
[2023-01-17] MEDS ORDERED: LABETALOL HCL 200 MG TABLET (FP) PO SCH ×2 (10:00→13:48)
[2023-01-17] MEDS ORDERED: HYDROCHLOROTHIAZIDE 25 MG TABLET (FP) PO SCH (10:15)
[2023-01-17] MEDS: ENOXAPARIN NA (PORCINE) 40 MG/0.4 ML DISP.SYRIN SQ SCH (10:50)
[2023-01-17] MEDS ORDERED: LABETALOL HCL 200 MG TABLET (FP) PO ONE (13:15)
[2023-01-17] MEDS: amLODIPine BESYLATE 5 MG TABLET (FP) PO SCH (14:17)
[2023-01-17] MEDS ORDERED: ALPRAZolam 0.25 MG TABLET PO ONE (14:56)
[2023-01-17] MEDS ORDERED: amLODIPine BESYLATE 5 MG TABLET (FP) PO ONE (16:29)
[2023-01-17] MEDS: HYDROCHLOROTHIAZIDE 25 MG TABLET (FP) PO SCH (16:37)
[2023-01-17] MEDS ORDERED: MELATONIN 5 MG TABLETS PO PRN (18:01)
[2023-01-17] MEDS: LABETALOL HCL 200 MG TABLET (FP) PO SCH (21:36)
[2023-01-17] MEDS: MONTELUKAST NA 10 MG TABLET PO SCH (21:36)
[2023-01-17] MEDS: ROSUVASTATIN CA 20 MG TABLET PO SCH (21:37)
[2023-01-18] MEDS: amLODIPine BESYLATE 5 MG TABLET (FP) PO SCH (09:08)
[2023-01-18] MEDS: ENOXAPARIN NA (PORCINE) 40 MG/0.4 ML DISP.SYRIN SQ SCH (09:08)
[2023-01-18] MEDS: LOSARTAN POTASSIUM 50 MG TABLET PO SCH (09:08)
[2023-01-18] MEDS: HYDROCHLOROTHIAZIDE 25 MG TABLET (FP) PO SCH (09:08)
[2023-01-18] MEDS: LABETALOL HCL 200 MG TABLET (FP) PO SCH ×2 (09:08→21:31)
[2023-01-18] MEDS ORDERED: ALPRAZolam 0.25 MG TABLET PO ONE (16:29)
[2023-01-18] MEDS: NIFEdipine E.R 60 MG TABLET PO SCH (17:44)
[2023-01-18] MEDS: MONTELUKAST NA 10 MG TABLET PO SCH (21:33)
[2023-01-18] MEDS: ROSUVASTATIN CA 20 MG TABLET PO SCH (21:33)
[2023-01-18] MEDS ORDERED: amLODIPine BESYLATE 5 MG TABLET (FP) PO SCH (22:00)
[2023-01-19 03:18] VITALS: RESP 18
[2023-01-19] MEDS: LOSARTAN POTASSIUM 50 MG TABLET PO SCH (09:01)
[2023-01-19] MEDS: LABETALOL HCL 200 MG TABLET (FP) PO SCH (09:01)
[2023-01-19] MEDS: HYDROCHLOROTHIAZIDE 25 MG TABLET (FP) PO SCH (09:01)
[2023-01-19] MEDS: NIFEdipine E.R 60 MG TABLET PO SCH (09:01)
[2023-01-19] MEDS: ENOXAPARIN NA (PORCINE) 40 MG/0.4 ML DISP.SYRIN SQ SCH (09:01)
[2023-01-19 09:03] VITALS: BP 147/94; PULSE 90; TEMP 98
== END 2023-01-19 11:20 | disposition home or self-care (01) ==
LOC: JER 09:09 → JERBED 11:04 → J4W 12:54
PROVIDERS: ADMIT Internal Medicine; ATTEND Internal Medicine
PROC: 3E023GC Introduction of Other Therapeutic Substance into Muscle, Percutaneous Approach (ICD-10-PCS; principal; 2023-01-16)
DX: I10 Essential (primary) hypertension (principal); E78.5 Hyperlipidemia, unspecified; J45.909 Unspecified asthma, uncomplicated; F41.9 Anxiety disorder, unspecified; Z96.619 Presence of unspecified artificial shoulder joint; I31.39 Other pericardial effusion (noninflammatory); Z87.891 Personal history of nicotine dependence
CPT/HCPCS: 0241U-QW; 36415; 71045-TC-FY; 80053; 80061; 82550; 82553; 83690; 83735; 84100; 84439; 84443; 84484; 85025; 85379; 85610; 85730; 93005; 93010; 93306-TC; 96372; 99285-25; G0378

== ENCOUNTER 2023-04-29 04:40 | Day surgery (SDC) | payer OTHER ==
[2023-04-23 08:33] VITALS: BMI 21.9
[2023-04-29 10:06] VITALS: TEMP 98
[2023-04-29 10:36] VITALS: BP 150/89; PULSE 79; RESP 14
== END 2023-04-29 11:00 | disposition home or self-care (01) ==
LOC: JASU-ENDO 04:40
PROVIDERS: ATTEND Student in an Organized Health Care Education/Training Program
PROC: 0DBN8ZX Excision of Sigmoid Colon, Via Natural or Artificial Opening Endoscopic, Diagnostic (ICD-10-PCS; principal; 2023-04-29 09:00)
DX: D12.5 Benign neoplasm of sigmoid colon (principal); K59.89 Other specified functional intestinal disorders
CPT/HCPCS: 88305-TC

== ENCOUNTER 2023-07-11 12:27 | Emergency (ER) | payer OTHER ==
[2023-07-11 12:31] VITALS: BP 126/75; PULSE 67; RESP 18; TEMP 98; BMI 21.9
[2023-07-11] MEDS ORDERED: LIDOCAINE 5% TOPICAL PATCH TP ONE (13:15)
[2023-07-11] MEDS ORDERED: KETOROLAC TROMETHAMINE 30 MG/1 ML VIAL IM ONE (13:15)
[2023-07-11] MEDS ORDERED: KETOROLAC TROMETHAMINE 30 MG/1 ML VIAL ONE (13:18)
[2023-07-11] MEDS ORDERED: LIDOCAINE 5% TOPICAL PATCH ONE (13:18)
[2023-07-11] MEDS ORDERED: LIDOCAINE PATCH REMOVAL MC ONE (22:00)
== END 2023-07-11 15:04 | disposition home or self-care (01) ==
LOC: JERFT 12:27
PROC: 3E0233Z Introduction of Anti-inflammatory into Muscle, Percutaneous Approach (ICD-10-PCS; principal; 2023-07-11)
DX: M25.511 Pain in right shoulder (principal); G47.00 Insomnia, unspecified; M62.838 Other muscle spasm; X50.0XXA Overexertion from strenuous movement or load, initial encounter
CPT/HCPCS: 73030-TC-RT-FY; 96372; 99284-25

== ENCOUNTER 2023-10-12 02:48 | Emergency (ER) | payer OTHER ==
[2023-10-12 03:04] VITALS: RESP 18; TEMP 97.8; BMI 21.9
[2023-10-12] MEDS ORDERED: TETRACAINE 0.5% HCL 0.6ML DROPPER.BOTTLE TP ONE (03:43)
[2023-10-12] MEDS ORDERED: TETRACAINE 0.5% OPHTH SOLN 2 ML BOTTLE ONE (03:45)
[2023-10-12] MEDS ORDERED: FLUORESCEIN NA 1 EA STRIP OU ONE (03:53)
[2023-10-12] MEDS ORDERED: FLUORESCEIN NA 1 EA STRIP ONE (03:54)
[2023-10-12] MEDS ORDERED: IBUPROFEN 600 MG TABLET (FP) PO ONE ×2 (04:42→04:55)
[2023-10-12 13:41] VITALS: BP 140/78; PULSE 72
== END 2023-10-12 13:41 | disposition home or self-care (01) ==
LOC: JER 02:48
DX: H57.11 Ocular pain, right eye (principal); H53.149 Visual discomfort, unspecified
CPT/HCPCS: 70450-TC; 70480-TC; 99284-25